=== PATIENT | female | born 1970 | race Caucasian/White ===

== ENCOUNTER 2016-04-09 10:31 | Emergency (ER) | payer OTHER ==
[~2016-04-09] VITALS: Ht 160 cm; Wt 78.1 kg
[~2016-04-09 10:31] MED LIST: LORA1TAB PO; METO-53 PO; PARO10TA26 PO; amitriptyline
[2016-04-09 10:39] VITALS: Ht 160 cm; Wt 78.1 kg
[2016-04-09] MEDS ORDERED: KETOROLAC 30 MG INJ IM STA (12:01)
[2016-04-09] MEDS ORDERED: OXYC-279 PO (12:11)
[2016-04-09] MEDS ORDERED: IBUP-1542 PO (12:11)
[2016-04-09] MEDS ORDERED: OXYCODONE/ACETAMINOPHEN (5/325) TAB PO ONE (12:30)
--- NOTE | 2016-04-09 12:38 | ERD ---
ER Documentation Chief Complaint Date/Time DATE: 04/09/16 TIME: 12:37 Chief Complaint left hip pain x 2 mos HPI 45-year-old woman presents with left lateral hip and left buttock pain 2-3 months. She states pain is worse with standing and sitting and sometimes the pain radiates down her left leg. She states she fell down some stairs a few months ago which exacerbated the pain, although she had this pain prior to the fall. She denies current analgesic use, no weakness in her arms or legs, no midline back pain no abdominal pain, no dysuria. Patient denies vomiting or diarrhea. Patient denies recent antibiotic use and denies current opioid analgesic use. ROS All systems reviewed and are negative except as per history of present illness. Medications Home Meds Active Scripts Ibuprofen* (Motrin*) 600 Mg Tab, 600 MG PO Q8 for PAIN AND/OR INFLAMMATION, #30 TAB Prov:UGO DE LOS SANTOS MD 04/09/16 Oxycodone HCl/Acetaminophen (Percocet 5-325 mg Tablet) 1 Each Tablet, 1 EACH PO TID for PAIN AND/OR INFLAMMATION, #12 TAB Prov:UGO DE LOS SANTOS MD 04/09/16 Reported Medications [amitriptyline] No Conflict Check 10/03/15 Paroxetine Hcl* (Paxil*) 10 Mg Tablet, 10 MG PO HS, TAB 10/03/15 Lorazepam* (Lorazepam*) 1 Mg Tablet, 1 MG PO HS Y for ANXIETY, TAB 04/14/14 Metoprolol (Lopressor) 50 Mg Tablet, 50 MG PO BID 01/13/12 Allergies Allergies: Uncoded Allergies: I.V. CONTRAST DYE (Allergy, Severe, SOB, 06/29/14) iv contrast dye (Allergy, Unknown, sob, 10/03/15) PMhx/Soc History of diverticulitis post partial colectomy, anxiety, rheumatoid arthritis , gastroesophageal reflux disease, anxiety, arthritis, recurrent intermittent left hip pain History of Surgery: Yes (colectomy) Anesthesia Reaction: No Hx Neurological Disorder: No Hx Respiratory Disorders: No Hx Cardiac Disorders: No Hx Psychiatric Problems: Yes (anxiety) Hx Miscellaneous Medical Probl: No Hx Alcohol Use: Yes Hx Substance Use: No Hx Tobacco Use: No FmHx Family History: No diabetes Physical Exam Vitals Vital Signs Date Time Temp Pulse Resp B/P Pulse Ox O2 Delivery O2 Flow Rate FiO2 2/15/17 10:39 98.1 99 18 165/67 99 Physical Exam GENERAL: Well-developed, well-nourished, well-hydrated, in no apparent distress , looks nontoxic in appearance HEENT: Moist mucous membranes, pink conjunctiva, no cervical spine tenderness or step-off deformities, no goiter, no jaundice or icterus, extraocular movements intact without pain. No submandibular induration, and no pharyngeal erythema NEURO: Alert and oriented 3, cranial nerves II through XII intact bilaterally, pupils equal round reactive to light, no focal deficits or facial asymmetry, sensation intact distally Strength 5/5 in upper and lower extremities bilaterally CARDIAC: Regular rate and rhythm, no murmurs rubs or gallops LUNGS: Clear bilaterally no wheezing crackles or stridor ABDOMEN: Soft nontender, no guarding, no rigidity, no rebound, no psoas sign no obturator sign. Normoactive bowel sounds SKIN: Warm and dry to touch, no abrasions, contusions, or hematomas, no lacerations, no ecchymosis, no target lesions, and without ulcers EXTREMITIES: No clubbing cyanosis or edema, calves are bilaterally symmetrical, no Homans sign, no popliteal cord sign. Distal pulses equal and bilateral. Straight leg test negative PSYCH: Normal affect without agitation or irritability Results 24 hrs Current Medications Medications (Trade) Dose Ordered Sig/Shima Route PRN Reason Start Time Stop Time Status Last Admin Dose Admin Ketorolac Tromethamine (Toradol) 30 mg ONCE STAT IM 04/09/16 12:01 04/09/16 12:03 DC 04/09/16 12:24 Oxycodone/ Acetaminophen (Percocet (5/ 325)) 1 tab ONCE ONCE PO 04/09/16 12:30 04/09/16 12:31 DC 04/09/16 12:24 Procedures/MDM After thorough assessment and palpation of the left hip and buttock I find no gross abnormality or soft tissue injury. For her symptoms I administered Toradol 30 mg intramuscular injection and Percocet 1 tablet p.o. I did tell her if this pain continues or worsens she may require MR imaging of the lumbar spine and pelvis, although this can be arranged by her primary care physician who she has an appointment in about 3-4 weeks. I will be prescribing her NSAID analgesics as well as opioid analgesics to use at home for pain if it recurs but I did caution her against heavy opioid analgesia as it does decrease peristalsis which may increase the likelihood of small bowel or colon discomfort /irritation leading to constipation and then in rare cases bowel wall inflammation. Patient does have a history of acute diverticulitis which required surgical partial colectomy. We did speak about her history of diverticulitis and about her surgical history, she thanked me for seeing her 2 years ago and providing oral antibiotics, although unfortunately she developed complications of acute diverticulitis and ultimately required surgery. Again I told her to use opioids sparingly and instead attempted NSAIDs, stretching, and mild exercise Differential diagnoses considered, included but not limited to acute coronary syndrome, pulmonary embolism, aortic dissection, abdominal aortic aneurysm, sepsis, stroke, meningitis, encephalitis, pneumonia, appendicitis, cholecystitis , bowel obstruction, pyelonephritis, nephrolithiasis, cystitis, as well as metabolic, hematologic, and electrolyte abnormalities. As well as abscess, cellulitis, fractures, and dislocations. Patient feels much better at this time, and vital signs are normal, symptoms have improved. I did give strict instructions to return to the ED if symptoms continue or worsen, patient will otherwise follow-up with primary care physician. Patient understood instructions and agreed to plan. Departure Diagnosis: Primary Impression: Hip sprain Encounter type: initial encounter Laterality: left Qualified Code: S73.102A - Hip sprain, left, initial encounter Additional Impression: Sciatica Laterality: left Qualified Code: M54.32 - Sciatica of left side Condition: Good Patient Instructions: Hip Strain, Back Pain W/ Sciatica UGO DE LOS SANTOS MD Apr 09, 2016 12:38
== END 2016-04-09 12:39 | disposition home or self-care (01) ==
LOC: FTE 10:31
DX: S73.102A Unspecified sprain of left hip, initial encounter (principal); M54.32 Sciatica, left side; W10.9XXA Fall (on) (from) unspecified stairs and steps, initial encounter; Y92.9 Unspecified place or not applicable
CPT/HCPCS: 96372; J1885; Z7502; Z7610

== ENCOUNTER 2017-07-27 16:22 | Emergency (ER) | END 2017-07-27 20:02 | disposition home or self-care (01) ==

== ENCOUNTER 2018-12-23 16:52 | Inpatient (IN) | payer OTHER ==
[~2018-12-23] VITALS: Ht 170.2 cm; Wt 67.0 kg
[~2018-12-23 16:52] MED LIST changes: +IBUP-1542 PO; +IBUP-1545 PO; -LORA1TAB PO; +METO-319 PO; -METO-53 PO; +ONDA4TAB14 PO; +PANT40TA3 PO; -PARO10TA26 PO; +TRAM50TA2 PO; -amitriptyline
[2018-12-24] VITALS: BP 151/102; PULSE 86; RESP 17
[2018-12-24 00:07] VITALS: Ht 170.2 cm; Wt 67.0 kg
[2018-12-24] MEDS ORDERED: ACETAMINOPHEN 325 MG TAB PO PRN (00:30)
[2018-12-24] MEDS ORDERED: NACL 0.9% 3 ML SYG IV SCH (00:30)
[2018-12-24] MEDS ORDERED: ONDANSETRON 4 MG INJ IV PRN (00:30)
[2018-12-24] MEDS ORDERED: DOCUSATE SODIUM 100 MG CAP PO PRN (00:30)
[2018-12-24] MEDS: SOD CHLORIDE 0.9% 1,000 ML IV SCH ×5 (00:42→21:58)
[2018-12-24] MEDS: HYDROmorphONE 0.5 MG/0.5 ML SYG IV PRN ×3 (00:42→10:38)
[2018-12-24 02:11] VITALS: BP 140/93; PULSE 84; RESP 18
[2018-12-24 07:41] VITALS: BP 117/67; PULSE 90; RESP 16
[2018-12-24] MEDS: BISACODYL (EC) 5 MG TAB PO PRN (08:35)
[2018-12-24] MEDS: METOPROLOL (XL) 50 MG TAB PO SCH (08:35)
[2018-12-24] MEDS: morphine 4 MG/ML VIAL IV PRN ×4 (12:22→21:52)
[2018-12-24 15:14] VITALS: BP 129/77; PULSE 78; RESP 18
[2018-12-24] MEDS: predniSONE 50 MG TAB PO SCH ×3 (15:31→23:05)
[2018-12-24 20:10] VITALS: BP 135/67; PULSE 74; RESP 17
[2018-12-24] MEDS ORDERED: DIPHENHYDRAMINE 50 MG INJ IV SCH (23:00)
[2018-12-24] MEDS ORDERED: SOD CHLORIDE 0.9% 100 ML ONE (23:54)
[2018-12-24] MEDS ORDERED: IODIXANOL LOCM 100 ML BTL ONE (23:54)
[2018-12-25 02:10] VITALS: BP 114/61; PULSE 63; RESP 17
[2018-12-25] MEDS: SOD CHLORIDE 0.9% 1,000 ML IV SCH ×3 (05:21→20:03)
[2018-12-25] MEDS: morphine 4 MG/ML VIAL IV PRN ×6 (06:14→21:43)
[2018-12-25 08:23] VITALS: BP 122/69; PULSE 56; RESP 16
[2018-12-25] MEDS: METOPROLOL (XL) 50 MG TAB PO SCH (08:30)
[2018-12-25 14:49] VITALS: BP 133/68; PULSE 71; RESP 18
[2018-12-25 20:15] VITALS: BP 122/79; PULSE 62; RESP 20
[2018-12-26] MEDS: morphine 4 MG/ML VIAL IV PRN ×2 (01:09→06:25)
[2018-12-26] MEDS: SOD CHLORIDE 0.9% 1,000 ML IV SCH ×3 (01:42→21:41)
[2018-12-26 02:27] VITALS: BP 132/67; PULSE 71; RESP 18
[2018-12-26] MEDS: BISACODYL (EC) 5 MG TAB PO PRN (06:32)
[2018-12-26 08:00] VITALS: BP 136/78; PULSE 83; RESP 18
[2018-12-26] MEDS: METOPROLOL (XL) 50 MG TAB PO SCH (08:40)
[2018-12-26] MEDS: KETOROLAC 15 MG INJ IV PRN ×3 (08:51→22:33)
[2018-12-26 15:29] VITALS: BP 127/73; PULSE 73; RESP 17
[2018-12-26 20:00] VITALS: BP 124/72; PULSE 76; RESP 17
[2018-12-26] MEDS: ZOLPIDEM 5 MG TAB PO PRN (21:40)
[2018-12-27 02:00] VITALS: BP 150/96; RESP 17
[2018-12-27] MEDS: SOD CHLORIDE 0.9% 1,000 ML IV SCH ×4 (04:34→20:23)
[2018-12-27] MEDS: KETOROLAC 15 MG INJ IV PRN ×2 (04:40→12:37)
[2018-12-27] MEDS: METOPROLOL (XL) 50 MG TAB PO SCH (08:24)
[2018-12-27 08:32] VITALS: BP 142/82; PULSE 56; RESP 18
[2018-12-27 14:19] VITALS: BP 145/87; PULSE 56; RESP 18
[2018-12-27] MEDS ORDERED: LORAZEPAM 2 MG INJ IV ONE (16:00)
[2018-12-27 17:25] VITALS: BP 174/97; PULSE 56; RESP 22
[2018-12-27] MEDS ORDERED: LIDOCAINE 4% SOLUTION 50 ML BTL ONE (17:44)
[2018-12-27] MEDS ORDERED: DIPHENHYDRAMINE 50 MG INJ ONE (17:49)
[2018-12-27] MEDS ORDERED: MIDAZOLAM 1 MG/ML 2 ML INJ ONE ×3 (18:29)
[2018-12-27] MEDS ORDERED: FENTAnyl 50 MCG/ML VIAL ONE ×2 (18:29)
[2018-12-27 18:30] VITALS: BP 148/92; PULSE 65; RESP 20
[2018-12-27 20:00] VITALS: BP 137/89; PULSE 65; RESP 18
[2018-12-27] MEDS: ZOLPIDEM 5 MG TAB PO PRN (20:23)
[2018-12-27] MEDS: morphine 2 MG INJ IV PRN (20:23)
[2018-12-28 02:00] VITALS: BP 145/86; PULSE 75; RESP 17
[2018-12-28] MEDS: morphine 2 MG INJ IV PRN ×2 (03:05→09:09)
[2018-12-28] MEDS: SOD CHLORIDE 0.9% 1,000 ML IV SCH ×2 (03:05→09:10)
[2018-12-28 08:00] VITALS: BP 144/81; PULSE 65; RESP 16
[2018-12-28] MEDS: METOPROLOL (XL) 50 MG TAB PO SCH (08:42)
[2018-12-28 14:00] VITALS: BP 147/85; PULSE 77; RESP 16
== END 2018-12-28 14:25 | disposition home or self-care (01) | DRG 440 ==
LOC: 5EC 23:37
PROVIDERS: ADMIT Internal Medicine; ATTEND Hospitalist
PROC: 0DB68ZX Excision of Stomach, Via Natural or Artificial Opening Endoscopic, Diagnostic (ICD-10-PCS; principal; 2018-12-27 18:30)
DX: K85.90 Acute pancreatitis without necrosis or infection, unspecified (principal); I10 Essential (primary) hypertension; R63.4 Abnormal weight loss; K31.9 Disease of stomach and duodenum, unspecified; K26.9 Duodenal ulcer, unspecified as acute or chronic, without hemorrhage or perforation; F41.9 Anxiety disorder, unspecified; R63.0 Anorexia; M19.90 Unspecified osteoarthritis, unspecified site; M06.9 Rheumatoid arthritis, unspecified; Z68.23 Body mass index [BMI] 23.0-23.9, adult; Z80.0 Family history of malignant neoplasm of digestive organs; Z80.7 Family history of other malignant neoplasms of lymphoid, hematopoietic and related tissues
CPT/HCPCS: 74177; 74181; 80048; 80053; 80061; 80307; 81001; 82105; 82150; 82378; 82382; 82533; 82787; 83036; 83690; 83735; 83835; 84100; 84439; 84443; 85025; 86140; 86301; 88305; 93005; J1170; J1200; J1885; J2060; J2250; J2270; J3010; J7030; J7512; Q9967